=== PATIENT | female | born 1970 | race Hispanic/Latino ===

== ENCOUNTER 2017-04-12 16:01 | Outpatient (RCR) | payer OTHER ==
[~2017-04-12 16:01] MED LIST: LEVOCETIRIZINE D5 MG PO; ULTRAM50 MG PO
== END 2017-04-20 ==
LOC: PT 16:01
PROVIDERS: ATTEND Specialist
DX: S83.232A Complex tear of medial meniscus, current injury, left knee, initial encounter (principal); M23.332 Other meniscus derangements, other medial meniscus, left knee; M23.91 Unspecified internal derangement of right knee; M25.562 Pain in left knee; M25.561 Pain in right knee; M71.21 Synovial cyst of popliteal space [Baker], right knee

== ENCOUNTER 2017-04-25 16:44 | Outpatient (RCR) | payer OTHER | END 2017-05-21 | LOC: PT 16:44 | PROVIDERS: ATTEND Specialist | DX: M23.332 Other meniscus derangements, other medial meniscus, left knee (principal); M25.562 Pain in left knee; M25.561 Pain in right knee; M23.91 Unspecified internal derangement of right knee; M71.21 Synovial cyst of popliteal space [Baker], right knee; R26.9 Unspecified abnormalities of gait and mobility ==

== ENCOUNTER → 2018-03-21 | Outpatient (CLI) | payer OTHER ==
[~2018-03-21] MED LIST changes: +IOPAMIDOL 370 MG/ML 200 ML INFUS..BTL INJ ONE; +SODIUM CHLORIDE 0.9% 50ML 50 ML ONE
[2018-03-21 17:37] LABS: BLOOD UREA NITROGEN 18 mg/dL (7-26); BUN/CREATININE RATIO 25 (6-25); CREATININE, SERUM 0.72 mg/dL (0.57-1.11); EST GLOMERULAR FILTRATION RATE > 60 ML/MIN (60-)
--- NOTE | 2018-03-21 19:43 | Diagnostic Imaging Report ---
CT IACS W HISTORY: Acute otitis externa; right ear pain, right facial droop COMPARISON: None. TECHNIQUE: Axial CT of the temporal bones was performed with intravenous contrast. Coronal, Poschl, and Stenvers reconstructed images were created. One or more of the following dose reduction techniques were used: Automated exposure control, adjustment of the mA and/or kV according to patient size, and/or utilization of iterative reconstruction technique. 100 mL of Isovue-370 were administered. DISCUSSION: Right temporal bone: External auditory canal: Focal soft tissue density fills the medial right external auditory canal, measures up to 8 mm in transverse dimension, and abuts the tympanic membrane. There is no associated osseous destruction. The lateral right external auditory canal is otherwise patent. Tympanic Membrane: Barely visualized. Scutum: Intact. Ossicles: Well visualized and intact. Middle ear: Clear. Mastoid air cells: Minimal opacification laterally. Tegmen Tympani: Intact. Tegmen Mastoideum: Intact. Internal auditory canal: Normal in caliber. Inner ear: Normal cochlea and vestibule. Semicircular canals: Normal. Not dehiscent. Facial canal: Normal. Vestibular Aqueducts: Not enlarged. Left temporal bone: External auditory canal: Subtle linear density is seen in the left external auditory canal. Otherwise, patent. Tympanic Membrane: Barely visualized. Scutum: Intact. Ossicles: Well visualized and intact. Middle ear: Clear. Mastoid air cells: Clear. Tegmen Tympani: Intact. Tegmen Mastoideum: Intact. Internal auditory canal: Normal in caliber. Inner ear: Normal cochlea and vestibule. Semicircular canals: Normal. Not dehiscent. Facial canal: Normal. Vestibular Aqueducts: Not enlarged. Additional findings: None. IMPRESSION: Right: 1. Nonspecific focal soft tissue density in the medial right external auditory canal can be correlated with physical examination. No associated osseous destruction. 2. Minimal right mastoid air cell opacification laterally. 3. Otherwise, unremarkable right temporal bone. Left: 1. Subtle linear density in the left external auditory canal may be related to cerumen. This can be correlated with physical examination. 2. Otherwise, unremarkable left temporal bone. Signed by: Dr. Blaise Felton M.D. on 03/21/2018 7:40 PM
== END ==
LOC: CT 16:20
PROVIDERS: ATTEND Family Medicine
DX: H60.501 Unspecified acute noninfective otitis externa, right ear (principal); R29.810 Facial weakness
CPT/HCPCS: 36415; 70481; 82565; 84520; Q9967

== ENCOUNTER → 2021-06-04 | Day surgery (SDC) | payer OTHER ==
[~2021-06-04] MED LIST changes: +BLACK ELDERBER1 EACH PO; +CRESTOR10 MG PO; +FENTANYL CITRATE/PF 100MCG/2 ML INJ ONE; -IOPAMIDOL 370 MG/ML 200 ML INFUS..BTL INJ ONE; +LIDOCAINE HCL 2% LOCAL INJ 5 ML SDV VIAL INJ ONE; +METOPROLOL SUCC25 MG PO; +MIDAZOLAM HCL 2 MG/2 ML VIAL ONE; +ONE DAILY COMP1 EACH PO; +PROPOFOL IV EMULSION 10 MG/ML 20 ML VIAL ONE; -SODIUM CHLORIDE 0.9% 50ML 50 ML ONE; +VITAMIN D PO
[2021-06-04 09:45] VITALS: BP 129/81
== END | disposition home or self-care (01) ==
LOC: OR 07:11
PROVIDERS: ATTEND Internal Medicine Gastroenterology
DX: Z12.11 Encounter for screening for malignant neoplasm of colon (principal); K64.8 Other hemorrhoids; Z71.3 Dietary counseling and surveillance; I10 Essential (primary) hypertension; E66.01 Morbid (severe) obesity due to excess calories; Z01.810 Encounter for preprocedural cardiovascular examination; Z01.812 Encounter for preprocedural laboratory examination; Z20.822 Contact with and (suspected) exposure to COVID-19; Z79.899 Other long term (current) drug therapy; Z68.41 Body mass index [BMI] 40.0-44.9, adult; Z80.0 Family history of malignant neoplasm of digestive organs
CPT/HCPCS: 45378; 81025; 93005; J2001; J2250; J2704; J3010; U0002